=== PATIENT | male | born 1985 | race Caucasian/White ===

== ENCOUNTER 2016-06-26 19:56 | Emergency (ER) | payer BC ==
[2016-06-26 20:07] VITALS: BP 154/101
--- NOTE | 2016-06-26 22:01 | EDM.PDOC ---
ED HISTORY OF PRESENT ILLNESS - General Chief Complaint: Chest Pain Stated Complaint: TINGLING UNDER LEFT ARM Time Seen by Provider: 06/26/16 21:51 Source of Information: Reports: Patient History Limitations: Reports: No limitations - History of Present Illness INITIAL COMMENTS - FREE TEXT/NARRATIVE: Patient presents for evaluation and treatment of tingling to the left arm. Patient also reports that he has had some discomfort in his chest. He states that the chest discomfort has been present since 2 in the afternoon but denies any discomfort right now. He reports associated hot flashes. He denies any nausea, vomiting, shortness of breath, wheezing, diaphoresis, fevers, chills, cough or neck pain. Patient was seen at the [place] [facility] on for similar symptoms. He was told he had low magnesium. was told this was because he drinks alcohol. He states that he maybe has 4 beers a week. He states it is not heavy drinker. He was given some IV magnesium and is on supplements. He is instructed to follow up with primary care provider for a magnesium recheck. - Related Data Allergies/ADRs: Allergies Allergy/AdvReac Type Severity Reaction Status Date / Time No Known Allergies Allergy Verified 06/26/16 20:02 Home Meds: Home Meds Magnesium. 06/26/16 [History] Past Medical History Genitourinary History: Reports: Renal calculus Social & Family History - Tobacco Use Smoking Status *Q: Never Smoker Second Hand Smoke Exposure: No - Alcohol Use Days Per Week of Alcohol Use: 0 Number of Drinks Per Day: 3 Total Drinks Per Week: 0 - Recreational Drug Use Recreational Drug Use: No ED ROS GENERAL - Review of Systems Review Of Systems: See Below Constitutional: Denies: fever, chills, diaphoresis Respiratory: Denies: Shortness of Breath, Wheezing Cardiovascular: Reports: Chest pain GI/Abdominal: Denies: Nausea, Vomiting Musculoskeletal: Reports: other (denies any muscle atrophy or arm weakness). Denies: neck pain Neurological: Reports: Tingling (left arm) Psychiatric: Reports: Anxiety ED EXAM, GENERAL - Physical Exam Exam: See Below Exam Limited By: No limitations General Appearance: alert, WD/WN, no apparent distress Throat/Mouth: Normal inspection, Normal voice, No airway compromise Neck: normal inspection, supple, non-tender, full range of motion Respiratory/Chest: no respiratory distress, lungs clear, normal breath sounds Cardiovascular: normal peripheral pulses, regular rate, rhythm, no murmur Extremities: normal inspection, normal range of motion Neurological: alert, oriented, normal cognition, no motor/sensory deficits Psychiatric: normal affect, normal mood Skin Exam: Warm, Dry, Normal color EKG INTERPRETATION EKG Date: 06/26/16 Time: 20:15 Rhythm: NSR Rate (beats/min): 77 [place]: normal P-wave: present QRS: normal ST-T: normal QT: normal Comparison: NA - no prior EKG EKG Interpretation Comments: NSR at 77 bpm. No acute changes. Reviewed by myself and Dr. Smith. Course - Vital Signs Last Recorded V/S: Last Vital Signs Temp 36.3 C 06/26/16 20:03 Pulse 80 06/26/16 20:03 Resp 15 06/26/16 20:03 BP 154/101 H 06/26/16 20:03 Pulse Ox 98 06/26/16 20:03 - Orders/Labs/Meds Labs: Laboratory Tests 06/26/16 06/26/16 06/26/16 Range/Units 20:08 20:08 20:08 WBC 7.62 (4.23-9.07) K/mm3 RBC 4.75 (4.63-6.08) M/mm3 Hgb 14.6 (13.7-17.5) gm/L Hct 43.6 (40.1-51.0) % MCV 91.8 (79.0-92.2) fl MCH 30.7 (25.7-32.2) pg MCHC 33.5 (32.2-35.5) g/dl RDW Std Deviation 44.0 H (35.1-43.9) fL Plt Count 259 (163-337) K/mm3 MPV 10.0 (9.4-12.3) fl Neutrophils % (Manual) 35 L (40-60) % Band Neutrophils % 0 (0-10) % Lymphocytes % (Manual) 58 H (20-40) % Atypical Lymphs % 0 % Monocytes % (Manual) 6 (2-10) % Eosinophils % (Manual) 0 L (0.8-7.0) % Basophils % (Manual) 1 (0.2-1.2) Platelet Estimate Adequate RBC Morph Comment Normal Sodium 138 (136-145) mEq/L Potassium 4.1 (3.5-5.1) mEq/L Chloride 103 (98-107) mEq/L Carbon Dioxide 25 (21-32) mEq/L Anion Gap 14.1 (5-15) BUN 13 (7-18) mg/dL Creatinine 0.9 (0.7-1.3) mg/dL Est Cr Clr Drug Dosing 121.67 mL/min Estimated GFR (MDRD) > 60 (>60) mL/min BUN/Creatinine Ratio 14.4 (14-18) Glucose 99 (74-106) mg/dL Calcium 9.5 (8.5-10.1) mg/dL Magnesium 2.1 (1.8-2.4) mg/dl Troponin I < 0.017 (0.00-0.056) ng/mL - Re-Assessments/Exams Free Text/Narrative Re-Assessment/Exam: 06/26/16 22:48 Labs returned. wbc 7.62, hgb is 14.6 and platelets are 259. Magnesium is 2.1. Sodium is 138, potassium 4.1 chloride is 141. Glucose is 99. trop is within normal limits a less than 0.017. I discussed the EKG and lab results with the patient. He denies having chest discomfort while in the ER. I feel that his tingling in his arms falls and ulnar nerve pattern. Question if he is compressing it at some level where the likely from certain movements such as holding a phone to his ear. follow up with his primary care provider this week as planned. Discharge instructions as documented. Departure - Departure Time of Disposition: 22:55 Disposition: Home, Self-Care 01 Condition: good Clinical Impression: Ulnar nerve compression Instructions: Nonspecific Chest Pain, [id number] Referrals: Melita Dalal [Primary Care Provider] - Forms: ED Department Discharge Additional Instructions: [id number] Tylenol or Motrin as needed for pain and symptom relief. Follow up with Dr. Crandall this week as planned. Please return to the ER should your symptoms change or worsen.
== END 2016-06-26 23:05 | disposition home or self-care (01) ==
LOC: JD.ED 19:56
DX: G56.22 Lesion of ulnar nerve, left upper limb (principal)
CPT/HCPCS: 36415; 80048; 83735; 84484; 85025; 93005; 99284; 99285-25

== ENCOUNTER 2022-08-14 05:40 | Emergency (ER) | payer BC ==
[2022-08-14 06:21] LABS: APPEARANCE,URINE CLEAR (Clear); BILIRUBIN,URINE NEGATIVE (Negative); COLOR,URINE YELLOW (Yellow); GLUCOSE,URINE NEGATIVE (Negative); KETONES,URINE NEGATIVE (Negative); LEUKOCYTE ESTERASE,URINE NEGATIVE (Negative); NITRITE,URINE NEGATIVE (Negative); OCCULT BLOOD,URINE 3+ (Negative); PH,URINE 6.5 (5.0-8.0); PROTEIN,URINE 2+ (Negative); UROBILINOGEN,URINE 0.2 (0.2-1.0)
[2022-08-14 06:45] LABS: RBC,URINE 50-75 /hpf (0-5); SQUAMOUS EPITHELIAL CELLS,UR 0-5 /hpf (0-5); WBC,URINE 0-5 /hpf (0-5)
[2022-08-14 06:46] LABS: BACTERIA,URINE FEW /hpf (FEW); MUCUS,URINE FEW /hpf (FEW)
[2022-08-14 07:52] VITALS: BP 155/98; PULSE 88
== END 2022-08-14 07:50 | disposition home or self-care (01) ==
LOC: JD.ED 05:40
DX: N13.2 Hydronephrosis with renal and ureteral calculous obstruction (principal); Z79.82 Long term (current) use of aspirin; Z86.16 Personal history of COVID-19
CPT/HCPCS: 74176; 74176-26; 81001; 99284